=== PATIENT | male | born 1960 | race Caucasian/White ===

== ENCOUNTER → 2016-09-15 | Outpatient (CLI) | payer OTHER | LOC: CLAB 10:31 | PROVIDERS: ATTEND Specialist | DX: B18.2 Chronic viral hepatitis C (principal) | CPT/HCPCS: 36415; 82140 ==

== ENCOUNTER → 2017-03-24 | Outpatient (CLI) | payer OTHER | LOC: CLAB 09:30 | PROVIDERS: ATTEND Specialist | DX: B18.2 Chronic viral hepatitis C (principal); R79.89 Other specified abnormal findings of blood chemistry; Z79.899 Other long term (current) drug therapy | CPT/HCPCS: 36415; 82140 ==

== ENCOUNTER → 2017-06-07 | Outpatient (CLI) | payer OTHER | LOC: CLAB 11:13 | PROVIDERS: ATTEND Specialist | DX: B18.2 Chronic viral hepatitis C (principal); K74.69 Other cirrhosis of liver; Z79.899 Other long term (current) drug therapy | CPT/HCPCS: 36415; 82140 ==